=== PATIENT | female | born 2000 | race Caucasian/White ===

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

== ENCOUNTER 2018-10-08 22:23 | Day surgery (SDC) | payer BC ==
--- NOTE | 2018-10-08 23:07 | EDPHY ---
H & P Stated Complaint: TAMPON IN ANUS W/ BLEEDING Time Seen by Provider: 10/08/18 22:33 HPI/ROS: Chief complaint: Tampon in rectum History of present illness: This is a 18-year-old female who presents to the emergency department reporting a tampon in her rectum. She is currently on her menstrual cycle. She was attempting to place a tampon when she accidentally placed it in her rectum. She was able to pull the cotton part out but believes the plastic part has remained. She reports discomfort. There is bright red bleeding from the rectum. She denies other associated signs or symptoms. - Personal History LMP (Females 10-55): Now Current Tetanus Diphtheria and Acellular Pertussis (TDAP): Yes - Medical/Surgical History Hx Asthma: Yes Hx Chronic Respiratory Disease: No Hx Diabetes: No Hx Cardiac Disease: No Hx Renal Disease: No Hx Cirrhosis: No Hx Alcoholism: No Hx HIV/AIDS: No Hx Splenectomy or Spleen Trauma: No Other PMH: endometriosis surgery, ear tubes. Anxiety. Yeast infection. - Social History Smoking Status: Light smoker - Physical Exam Exam: General Appearance: Alert and no distress. Eyes: Pupils equal and round no injection. Respiratory: Chest is non tender, lungs are clear to auscultation. Cardiac: regular rate and rhythm Gastrointestinal: Abdomen is soft and non tender, no masses, bowel sounds normal. Rectal: The tip of a foreign object is felt in the rectum by digital rectal exam. Musculoskeletal: Extremities have full range of motion and are non tender. Skin: No rashes or lesions. Constitutional: Initial Vital Signs Temperature (C) 37.1 C 10/08/18 22:30 Heart Rate 101 H 10/08/18 22:30 Respiratory Rate 16 10/08/18 22:30 Blood Pressure 107/54 L 10/08/18 22:30 O2 Sat (%) 95 10/08/18 22:30 O2 Delivery Mode Room Air Allergies/Adverse Reactions: No Known Allergies Allergy (Verified 10/18/17 04:04) Home Medications: Medication Instructions Recorded Clonazepam 11/12/17 Medical Decision Making - Diagnostics Imaging: I viewed and interpreted images myself ED Course/Re-evaluation: Patient seen under the supervision of my secondary supervising physician Dr. Nik Colon. Patient presents with a rectal foreign body. She is nontoxic. I have felt a foreign object by digital rectal exam. Unable to retrieve it. On -call surgery, Dr. Ran Gonzales is consulted. He will see patient in the emergency department and will discuss definitive care. Differential Diagnosis: Included but not limited to rectal foreign body, perforation Departure - Departure Disposition: To OP Cath/Surgery Clinical Impression: Rectal foreign body Qualifiers: Encounter type: initial encounter Qualified Code(s): T18.5XXA - Foreign body in anus and rectum, initial encounter
--- NOTE | 2018-10-08 23:56 | GDS ---
[f rep st] history and physical DATE OF TRANSFER: 10/08/2018 CHIEF COMPLAINT: Foreign body in rectum. HISTORY OF PRESENT ILLNESS: 18-year-old female states that she was placing a tampon with an applicator and mistakenly placed it in her rectum and cannot retrieve it. The emergency room nurse practitioner could feel the object but not remove it. ALLERGIES: None. CURRENT MEDICATIONS: Klonopin p.r.n. REVIEW OF SYSTEMS: Denies asthma, heart trouble, diabetes, epilepsy, rheumatic fever. SOCIAL HISTORY: Smokes 3 cigarettes a day. Alcohol use occasionally. Drank 3 beers tonight. PREVIOUS SURGERY: Laparoscopy for endometriosis and ear tubes. PHYSICAL EXAMINATION: GENERAL APPEARANCE: Petite 18-year-old female. HEENT: Within normal limits. LUNGS: Clear. HEART: Normal S1, S2 without murmur. ABDOMEN: Flat, benign, nontender other than slight suprapubic tenderness. EXTREMITIES: Unremarkable. ASSESSMENT: Apparent foreign body in rectum. RECOMMENDATIONS: Exam under anesthesia with removal of foreign body. I have ordered a KUB to make sure there is no sign of free air or other objects in the rectum. Risks and benefits of the procedure including the possibility of a laparotomy were explained to the patient. She understands and is agreeable. /[id number]/MODL MTDD
--- NOTE | 2018-10-09 00:16 | PDANEPAE ---
ANE History of Present Illness 18 yo female with tampon in anus for retrieval. ANE Past Medical History - Cardiovascular History Hx Hypertension: No Hx Arrhythmias: No Hx Chest Pain: No Hx Coronary Artery / Peripheral Vascular Disease: No Hx CHF / Valvular Disease: No Hx Palpitations: No - Pulmonary History Hx COPD: No Hx Asthma/Reactive Airway Disease: No Hx Recent Upper Respiratory Infection: No Hx Oxygen in Use at Home: No - Endocrine History Hx Diabetes: No Hypothyroid: No Hyperthyroid: No Obesity: no - Renal History Hx Renal Disorders: No - Liver History Hx Hepatic Disorders: No - Neurological & Psychiatric Hx Hx Neurological and Psychiatric Disorders: Yes Neurological / Psychiatric History Comment: anxiety - GI History Hx Gastrointestinal Disorders: No ANE Review of Systems Review of Systems: - Systems Gastrointestinal: Reports: rectal bleeding ANE Patient History - Allergies Allergies/Adverse Reactions: No Known Allergies Allergy (Verified 10/18/17 04:04) - Home Medications Home Medications: Clonazepam 11/12/17 [Last Taken Unknown] - NPO status NPO Since - Liquids (Date): 10/08/18 NPO Since - Liquids (Time): 21:30 (beer) NPO Since - Solids (Date): 10/08/18 NPO Since - Solids (Time): 20:45 (steak) - Anes Hx Anes Hx: no prior problems - Smoking Hx Smoking Status: Light smoker (3 cigs/day) Marijuana use: Yes - Alcohol Use Alcohol Use: Occasionally (2/week) - Family Anes Hx Family Anes Hx: neg - N/A ANE Labs/Vital Signs - Vital Signs Blood Pressure: 103/59 Heart Rate: 88 Respiratory Rate: 18 O2 Sat (%): 98 Height: 147.32 cm Weight: 49.895 kg ANE Physical Exam - Airway Neck exam: FROM Mallampati Score: Class 2 Mouth exam: normal dental/mouth exam - Pulmonary Pulmonary: clear to auscultation - Cardiovascular Cardiovascular: regular rate and rhythym - ASA Status ASA Status: II, E ANE Anesthesia Plan Anesthesia Plan: general endotracheal anesthesia
[2018-10-09] MEDS ORDERED: DEXAMETHASONE 4 MG/ML VIAL ONE (00:17)
[2018-10-09] MEDS ORDERED: SUCCINYLCHOLINE CHLORIDE 200 MG/10 ML SYR IVP ONE (00:17)
[2018-10-09] MEDS ORDERED: PROPOFOL 200 MG/20 ML VIAL ONE ×2 (00:18)
[2018-10-09] MEDS ORDERED: fentaNYL 100 MCG/2 ML INJ ONE (00:18)
[2018-10-09] MEDS ORDERED: KETOROLAC 30 MG/1 ML SDV ONE (00:43)
[2018-10-09] MEDS ORDERED: ONDANSETRON 4 MG/2 ML VIAL ONE (00:44)
--- NOTE | 2018-10-09 00:56 | POSTOPPROG ---
Post Op Note Date of Operation: 10/09/18 Surgeon: Ran Gonzales Anesthesiologist: janie Pre-op Diagnosis: foreign body in rectum Post-op Diagnosis: same Indication: same Procedure: eua with foregn body removal Findings: tampon applicator in rectum Inf/Abcess present in the surg proc area at time of surgery?: No
[2018-10-09] MEDS ORDERED: ACETAMINOPHEN 325 MG TAB PO PRN (01:01)
[2018-10-09] MEDS ORDERED: ACETAMINOPHEN 500 MG TAB PO PRN (01:07)
[2018-10-09] MEDS ORDERED: PROMETHAZINE HCL 25 MG/ML INJ IVP PRN (01:07)
[2018-10-09] MEDS ORDERED: LR 500 ML IV PRN (01:07)
[2018-10-09] MEDS ORDERED: NALOXONE HCL 0.4 MG/ML INJ IVP PRN (01:07)
[2018-10-09] MEDS ORDERED: fentaNYL 100 MCG/2 ML INJ IVP PRN (01:07)
--- NOTE | 2018-10-09 01:08 | POSTANESTH ---
Post Anesthetic Evaluation Cardiovascular Status: Normal, Stable Respiratory Status: Normal, Stable Level of Consciousness/Mental Status: Can Participate in Eval, Moderately Sleepy Pain Control: Adequate, Prn Tx Ordered Nausea/Vomiting Control: Adequate, Prn Tx Ordered Complications Possibly Related to Anesthesia: None Noted
--- NOTE | 2018-10-09 01:16 | GOP ---
[f rep st] operative report DATE OF OPERATION: SURGEON: Ran Gonzales MD PREOPERATIVE DIAGNOSIS: Foreign body in rectum. POSTOPERATIVE DIAGNOSIS: Foreign body in rectum. PROCEDURE PERFORMED: Exam under anesthesia, removal of foreign body. FINDINGS: INDICATIONS: Patient with a tampon applicator in the rectum which could not be retrieved by the emergency room physician. DESCRIPTION OF PROCEDURE: General anesthetic. Patient positioned in the stirrups. Digital rectal exam, encountering the foreign body, which could be manipulated and delivered out of the anus. Anoscopy was done. There were no intraluminal lacerations or bleeding. The patient was awakened, tolerated the procedure well. /[id number]/MODL MTDD
[2018-10-09 02:06] VITALS: BP 119/73
== END 2018-10-09 02:24 | disposition home or self-care (01) ==
LOC: FSGY 10-09 00:14 → UNDOADMOB 10-09 01:01 → F3E 10-09 01:01 → FSGY 10-09 02:24 → UNDODISOB 10-09 02:24
PROVIDERS: ATTEND Surgery
PROC: 0DCP8ZZ Extirpation of Matter from Rectum, Via Natural or Artificial Opening Endoscopic (ICD-10-PCS; principal; 2018-10-08)
DX: T18.5XXA Foreign body in anus and rectum, initial encounter (principal)
CPT/HCPCS: J0330; J1100; J1885; J2405; J2704; J3010

== ENCOUNTER 2018-10-22 21:15 | Emergency (ER) | payer OTHER, BC | END 2018-10-22 22:09 | disposition home or self-care (01) ==